=== PATIENT | male | born 1960 | race Caucasian/White ===

== ENCOUNTER → 2018-11-02 | Day surgery (SDC) | payer BC ==
[~2018-11-02] MED LIST: ASPIR 8181 M1 PO; ASPIR 8181 MG PO; AUGMENTIN 875875 MG PO; BACTRIM DS TAB1 EACH PO; ENDOCET 5-3251 EACH PO; HYDROCODONE-AP1 EAC6 PO; IMDUR 30 MG TAB30 M1 PO; KEFLEX500 MG PO; LOPRESSOR25 PO; MUCINEX TA600 MG/TA2 PO; PREDNISONE 5 MG5 M1 PO; PROPAFENONE 15150 MG PO; TRICOR145 MG PO
--- NOTE | ~2018-11-02 | PROC ---
[address] [address] PROCEDURE REPORT Name: YARA PATRICK Room: [facility] M..#: [id number] Admission: 11/02/18 Attend Phys: Desmond Mckeon MD Discharge: Date of : 62 Report #: [id number] THIS REPORT FOR: //name// For GI report, please see the Provation report in Perceptive 7. By: 1447Medical Records Staff [facility] /JOHN
[2018-11-02 10:45] LABS: HEMATOCRIT 42.4 % (42.0-52.0); HEMOGLOBIN 14.9 gm/dL (14.0-18.0); MCH 29.5 pg (26.0-34.0); MCHC 35.1 g/dL (28.0-37.0); MPV 7.1 fl. (7.2-11.1); RBC 5.04 mil/uL (4.50-6.00); RDW-CV 14.1 % (10.5-14.5); WBC 4.2 thou/uL (4.0-11.0)
[2018-11-02 10:52] LABS: CALCIUM 9.3 mg/dL (8.5-10.1); CREATININE 1.1 mg/dL (0.6-1.3)
[2018-11-02 10:56] LABS: ALBUMIN 4.1 g/dL (3.4-5.0); TOTAL BILIRUBIN 0.8 mg/dL (<0.1-1.0); TOTAL PROTEIN 7.5 g/dL (6.4-8.2)
--- NOTE | 2018-11-02 13:25 | EKG ---
[place] [address] ELECTROCARDIOGRAM REPORT Name: YARA PARTICK Room: [facility].#: [id number] Admission: 11/02/18 Attend Phys: Desmond Mckeon MD Discharge: Date of : 62 Report #: [id number] THIS REPORT FOR: //name// [facility] Test Date: 2018-11-02 Test Time: 10:41:02 Pat Name: YARA PATRICK Department: Room: Gender: M Can Line Examiner: NITO : 1960 Requested By: Bhaskar Baltazar Order Number: [id number] Mamadou MD: José Antonio Velasco Measurements Intervals [place] Rate: 62 P: 20 HI: 167 QRS: 23 QRSD: 108 T: 233 QT: 389 QTc: 395 Interpretive Statements Sinus rhythm Abnormal R-wave progression, early transition Nonspecific T abnormalities, diffuse leads Compared to ECG 10/21/2017 08:30:46 T-wave abnormality still present Electronically Signed On 11-02-2018 13:24:53 PROPERTY DEVELOPER by José Antonio Velasco [email or web address] <ELECTRONICALLY SIGNED> By: José Antonio Velasco MD, [facility] 11/02/18 1324 1041 1041 José Antonio Velasco MD, [facility] /EPI
--- NOTE | 2018-11-04 17:09 | PATH ---
[facility] [address] [place] [address] PATHOLOGY RPT PROCEDURE Name: QUINN PATRICK Room: [facility].R.#: [id number] Admission: 11/02/18 Date of : 62 Discharge: Report #: [id number] Path Case #: [id number] [facility] Accession Number: [id number] . 01 Material submitted: . PART A: ASCENDING COLON POLYP PART B: TRANSVERSE COLON POLYP . 01 Clinical history: . Colon cancer screening for high risk patient . 02 Diagnosis: A. Ascending colon polyp: - Hyperplastic polyp. . B. Transverse colon polyp: - Tubular adenoma, negative for high-grade dysplasia. (CHARY:pit 11/04/2018) QTP/11/04/2018 . 02 Electronically signed: . George Draper MD, Pathologist NPI- [id number] . 01 Gross description: . A. Received in formalin labeled "Quinn Patrick, ascending colon polyp," is a single segment of ambrosio soft tissue measuring 0.2 cm in maximum dimension. The specimen is entirely submitted in cassette A1. . B. Received in formalin labeled "Quinn Patrick, transverse colon polyp," is a single segment of ambrosio soft tissue measuring 0.6 cm in maximum dimension. The specimen is entirely submitted in cassette B1. (TSD; 11/02/2018) TOB/TOB . 02 Pathologist provided ICD-10: K63.5, D12.3 . 02 CPT . 222399, 088823 Specimen Comment: A courtesy copy of this report has been sent to Specimen Comment: [phone], . Specimen Comment: Report sent to / DR MULLINS Performed at: [address] [id number] MD Melvin Caputo MD Phone: [phone] Performed at: [address] [address] PATHOLOGY RPT PROCEDURE Name: QUINN PATRICK Room: [facility]#: [id number] Admission: 11/02/18 Date of : 62 Discharge: Report #: [id number] Path Case #: [id number] [address] [id number] MD George Draper MD Phone: [phone]
== END | disposition home or self-care (01) ==
LOC: M.SUR 09:53
PROVIDERS: Student in an Organized Health Care Education/Training Program
DX: Z12.11 Encounter for screening for malignant neoplasm of colon (principal); Z86.010 Personal history of colon polyps; D12.3 Benign neoplasm of transverse colon; K63.5 Polyp of colon; K57.30 Diverticulosis of large intestine without perforation or abscess without bleeding; K64.8 Other hemorrhoids; K21.9 Gastro-esophageal reflux disease without esophagitis; E78.5 Hyperlipidemia, unspecified; I48.0 Paroxysmal atrial fibrillation; G47.33 Obstructive sleep apnea (adult) (pediatric); E66.09 Other obesity due to excess calories; Z80.0 Family history of malignant neoplasm of digestive organs; Z79.899 Other long term (current) drug therapy; Z90.49 Acquired absence of other specified parts of digestive tract; Z79.01 Long term (current) use of anticoagulants; Z80.3 Family history of malignant neoplasm of breast; Z68.43 Body mass index [BMI] 50.0-59.9, adult

== ENCOUNTER 2019-04-26 11:59 | Inpatient (IN) | payer OTHER ==
[~2019-04-26] VITALS: Ht 172.7 cm; Wt 170.1 kg
[2019-04-26 12:06] VITALS: BP 179/107
[2019-04-26] MEDS ORDERED: PROPAFENONE 22225 M1 PO (12:08)
[2019-04-26] MEDS ORDERED: ASPIRIN325 PO (12:08)
[2019-04-26 12:51] LABS: ABSOLUTE EOSINOPHILS 0.1 thou/uL (0.0-0.7); ABSOLUTE LYMPHOCYTES 1.1 thou/uL (0.8-5.3); ABSOLUTE MONOCYTES 1.1 thou/uL (0.0-1.2); ABSOLUTE NEUTROPHILS 8.6 thou/uL (1.6-8.1); BASOPHILS 0.2 %; EOSINOPHILS 0.5 %; HEMATOCRIT 40.2 % (42.0-52.0); HEMOGLOBIN 14.1 gm/dL (14.0-18.0); LYMPHOCYTES 9.8 %; MCV 82.7 fL (80.0-100.0); MONOCYTES 10.2 %; MPV 7.1 fl. (7.2-11.1); NUCLEATED RBCS 0 /100WBC; PLATELET COUNT* 182 thou/uL (150-400); POLYS 79.3 %; RBC 4.86 mil/uL (4.50-6.00); RDW-CV 14.3 % (10.5-14.5); WBC 10.9 thou/uL (4.0-11.0)
[2019-04-26 12:59] LABS: CALCIUM 8.8 mg/dL (8.5-10.1); POTASSIUM 3.5 mmol/L (3.5-5.1)
[2019-04-26 13:04] LABS: ALBUMIN 3.6 g/dL (3.4-5.0); TOTAL BILIRUBIN 1.2 mg/dL (<0.1-1.0); TOTAL PROTEIN 7.3 g/dL (6.4-8.2)
--- NOTE | 2019-04-26 16:45 | NUR ---
PT MOVED TO MORE COMFORTABLE BED TO AWAIT SURGERY.
[2019-04-26 17:07] LABS: PROTIME 10.7 Seconds (9.20-11.50)
[2019-04-26 17:48] VITALS: BP 121/70
[2019-04-26 21:50] VITALS: BP 151/80
--- NOTE | 2019-04-27 00:03 | NUR ---
[id number]: ALERT AND ORIENTED X 4 MALE PATIENT TO ROOM 116 @ 2150 BY BED FROM PACU IN STABLE CONDITION. ABLE TO ROLL INDEPENDENTLY TO SIDE FOR DRESSING CHECK OVER I&D SITE OF ITA-RECTAL ABSCESS. VITAL SIGNS STABLE WITH CONTINUOUS OXIMETRY. PLAN OF CARE REVIEWED. BOX LUNCH AND HS MEDICATIONS PROVIDED. MEDICATED FOR PERINEUM DISCOMFORT. RT SET UP HOME CPAP. CURRENTLY RESTING QUIETLY. CONTINUE TO MONITOR.
[2019-04-27 04:00] VITALS: BP 117/65
--- NOTE | 2019-04-27 05:07 | NUR ---
PATIENT HAS REMAINED ALERT AND ORIENTED X 4 THROUGHOUT THE SHIFT AND RESTING QUIETLY ON HOURLY ROUNDS. TURNED TO SIDE FOR COMFORT. DRESSING TO BOTTOM INTACT. MEDICATED FOR PAIN X 1 TO GOOD EFFECT. HAS HAD REGULAR DIET WITHOUT NAUSEA. VOIDED PER URINAL IN ADEQUATE AMOUNT. NO CHEST PAIN OR SHORTNESS OF BREATH. ROOM AIR OVERNIGHT WITH HOME CPAP ON AND CONTINUOUS OXIMETRY. VITAL SIGNS STABLE. CONTINUE TO MONITOR.
[2019-04-27 05:16] LABS: CALCIUM 8.8 mg/dL (8.5-10.1); CREATININE 1.1 mg/dL (0.6-1.3); MAGNESIUM 2.1 mg/dL (1.8-2.4); PHOSPHORUS* 1.8 mg/dL (2.5-4.9); POTASSIUM 4.2 mmol/L (3.5-5.1)
[2019-04-27 05:29] LABS: HEMATOCRIT 38.5 % (42.0-52.0); HEMOGLOBIN 13.4 gm/dL (14.0-18.0); MCH 29.1 pg (26.0-34.0); MCHC 34.8 g/dL (28.0-37.0); MCV 83.5 fL (80.0-100.0); MPV 7.8 fl. (7.2-11.1); RBC 4.61 mil/uL (4.50-6.00); RDW-CV 13.8 % (10.5-14.5); WBC 10.8 thou/uL (4.0-11.0)
[2019-04-27 07:35] VITALS: BP 96/55
[2019-04-27 09:10] VITALS: BP 96/55
[2019-04-27 11:30] VITALS: BP 119/78
--- NOTE | 2019-04-27 15:59 | NUR ---
HARMONICA MAKER SPOKE TO THE PATIENT TO DISCUSS HIS HOME SITUATION, DISCHARGE PLANNING, AND TO INFORM OF THE ROLE OF CM. PATIENT ALERT, ORIENTED, AND INDEPENDENT WITH ADL'S. PATIENT ACTIVE, AND WORKS. PATIENT RESIDES AT HOME ALONE, BUT INFORMS THAT HIS SON IS ABLE TO ASSIST HIM AT D/C IF NEEDED. PATIENT USES A CPAP AT HOME, AND BROUGHT IT WITH HIM TO THE HOSPITAL TO USE. PATIENT HAS NO HX OF HH OR SNF, AND PLANS TO RETURN HOME AT D/C. CM WILL REMAIN AVAILABLE TO ASSIST AND FOLLOW NEEDED.
[2019-04-27 16:01] VITALS: BP 111/56
--- NOTE | 2019-04-27 17:25 | NUR ---
PT REMAINED ALERT AND ORIENTED. PT DENIES ANY PAIN AT THIS TIME. FALL RISK PRECAUTIONS IN PLACE. HOURLY ROUNDING COMPLETED. WILL CONTINUE TO MONITOR.
[2019-04-27 21:15] VITALS: BP 142/95
--- NOTE | 2019-04-28 04:52 | NUR ---
PATIENT HAS REMAINED ALERT AND ORIENTED X 4 THROUGHOUT THE SHIFT AND RESTING QUIETLY ON HOURLY ROUNDS AFTER HS. UP IN ROOM DURING THE EVENING. PUT ON SHORTS AND SAT IN CHAIR FOR A BIT. BED LINENS CHANGED. ITA-RECTAL DRESSING CLEAN AND DRY. VITAL SIGNS STABLE. ANTIBIOTICS PROVIDED PER ORDER. CONTINUE TO MONITOR.
[2019-04-28 07:45] VITALS: BP 145/80
[2019-04-28 11:02] VITALS: BP 96/55
[2019-04-28 13:36] VITALS: BP 96/55
--- NOTE | 2019-04-28 15:41 | NUR ---
Nutrition: pt with class III morbid obesity. Unavailable at visit. Intake 100%. Albumin WNL. Meds reviewed. Low nutrition risk.
--- NOTE | 2019-04-28 15:54 | NUR ---
AUTO REPAIR SHOP MANAGER SPOKE TO THE PATIENT TO DISCUSS DISCHARGE PLANNING AND HH. PATIENT IN AGREEMENT WITH PLAN AND ACCEPTS [facility] FOR HH. D/C CHECK INSPECTOR ASSISTED THE PATIENT IN COMPLETING CHOICE OF VENDOR FORM AND PLACED COPY ON CHART. D/C CHECK INSPECTOR SPOKE TO [facility] TO INFORM OF REFERRAL. D/C CHECK INSPECTOR INFORMED BY RN IN-CHARGE OF PATIENT THAT SX WILL SEE PATIENT TODAY TO DETERMINE IF THE PATIENT IS READY TO D/C WITH PLAN TO TRANSITION PATIENT TO ORAL ABT'S. CM WILL REMAIN AVIALABLE TO ASSIST AND FOLLOW NEEDED. [facility] PHONE: [phone] FAX:[phone]
[2019-04-28 16:39] VITALS: BP 96/55
[2019-04-28] MEDS ORDERED: NORCO 7.5-3251 EACH PO (16:49)
[2019-04-28] MEDS ORDERED: FLAGYL500 M1 PO (16:49)
[2019-04-28] MEDS ORDERED: AUGMENTIN 875-1 EACH PO (16:50)
[2019-04-28 16:51] VITALS: BP 96/55
[2019-04-28 17:08] VITALS: BP 96/55
--- NOTE | 2019-04-28 17:45 | NUR ---
PT GIVEN DISCHARGE INFORMATION, CARE NOTES, AND PRESCRIPTIONS. IV REMOVED. HOME HEALTH SET UP. FALL RISK PRECAUTIONS IN PLACE. HOURLY ROUNDING COMPLETED. PT LEFT AMBULATORY TO HOME.
--- NOTE | 2019-05-01 13:09 | OP ---
[address] [address] OPERATIVE REPORT Name: CELINAYARA MONTANO Room: [address] M.R.#: [id number] Admission: 04/26/19 Attend Phys: Joseph Talbot DO Discharge: 04/28/19 Date of : 62 Report #: [id number] THIS REPORT FOR: //name// CC: Joseph Talbot DO Timaalem Benedict Timaalem Benedict MD DICTATED BY: Laly Barber DO DATE OF SERVICE: 04/26/2019 PREOPERATIVE DIAGNOSIS: Perirectal abscess. POSTOPERATIVE DIAGNOSES: Perirectal abscess. PROCEDURE PERFORMED: Incision and drainage of perirectal abscess. PRIMARY SURGEON: Joseph Talbot DO. HYDROELECTRIC POWERPLANT SUPERVISOR: Laly Barber DO, PGY1. ANESTHESIA: General endotracheal. ESTIMATED BLOOD LOSS: 50 mL. FINDINGS: Large abscess cavity approximately 8 x 5 cm. COMPLICATIONS: None. INDICATIONS: The patient is a pleasant 58-year-old gentleman that presented to the Emergency Department with perirectal pain that began on 04/23/2019. He had subjective fever and chills at home. No drainage from the area. No nausea, vomiting, or change in bowel habits. In the Emergency Department, he underwent a CT of the abdomen and pelvis, which demonstrated an 8 x 4 cm fluid collection of the perirectal region. He does have a history of atrial fibrillation and takes 325 mg of aspirin daily. It was recommended that he undergo incision and drainage of this abscess in the operating room. DESCRIPTION OF PROCEDURE: The benefits, risks and possible complications were all discussed with the patient in detail and he wished to proceed with surgery. Informed consent was obtained. The patient was taken to the operating room and placed supine on the operating room table. General endotracheal anesthesia was induced without difficulty. The patient was then placed in the lithotomy position. He was then prepped and draped in the standard sterile fashion. A timeout was performed to ensure correct patient [place] [address] OPERATIVE REPORT Name: YARA PATRICK Room: [address] M.R.#: [id number] Admission: 04/26/19 Attend Phys: Joseph Talbot, Discharge: 04/28/19 Date of : 62 Report #: [id number] antibiotics were given. SCDs were placed on bilateral lower extremities, a 4 cm vertical incision was made overlying the area of fluctuant using a 15 blade scalpel, incision was carried down through the subcutaneous tissue. Blunt dissection was used to enter the abscess cavity. We then had immediate return of copious amounts of foul smelling purulent fluid. Culture swabs were obtained. A finger was used to bluntly dissect within the abscess cavity and break up any existing loculations. Purulent fluid continued to drain from the wound, abscess cavity measured approximately 8 x 5 cm. The vertical incision was extended anteriorly approximately for a total length of the incision of 6 cm abscess. Cavity was copiously irrigated with hydrogen peroxide and then sterile saline. The cavity was then packed with a 2-inch iodoform packing. Pressure was held for several minutes to ensure hemostasis. The patient was then cleansed and dried. ABD pads were placed over the surgical site. The patient tolerated the procedure well. He was allowed to awaken in the operating room and then transferred to the PACU in stable condition with plans to admit to the floor for further care and IV antibiotics. <ELECTRONICALLY SIGNED> By: Joseph Talbot DO 05/01/19 1309 2113 2210Adaroosevelt Talbot DO /nt
== END 2019-04-28 17:46 | disposition home health service (06) | DRG 346 ==
LOC: M.ERS 11:59 → M.ORTHSURG 16:12 → M.TBA-ER 16:12 → M.ORTHSURG 21:50
PROVIDERS: Nurse Practitioner Family; ADMIT Surgery
PROC: 0D9P0ZZ Drainage of Rectum, Open Approach (ICD-10-PCS; principal; 2019-04-26)
DX: K61.0 Anal abscess (principal); I48.91 Unspecified atrial fibrillation; Z82.49 Family history of ischemic heart disease and other diseases of the circulatory system; Z79.899 Other long term (current) drug therapy

== ENCOUNTER → 2019-12-10 | Outpatient (CLI) | payer OTHER ==
[~2019-12-10] MED LIST changes: +ASPIRIN325 PO; +AUGMENTIN 875-1 EACH PO; +FLAGYL500 M1 PO; +NORCO 7.5-3251 EACH PO; +PROPAFENONE 22225 M1 PO
== END ==
LOC: M.ULTRA 07:51
DX: K80.20 Calculus of gallbladder without cholecystitis without obstruction (principal); R16.0 Hepatomegaly, not elsewhere classified; K76.0 Fatty (change of) liver, not elsewhere classified

== ENCOUNTER → 2020-01-21 | Day surgery (SDC) | payer OTHER ==
[~2020-01-21] MED LIST changes: +LIPITOR 20 MG T20 M1 PO; +NEURONTIN100 MG PO; +OXYCODONE HCL 55 MG PO
--- NOTE | ~2020-01-21 | OP ---
[address] [address] OPERATIVE REPORT Name: YARA PATRICK Room: [facility]..#: [id number] Admission: 01/21/20 Attend Phys: Joseph Talbot DO Discharge: Date of : 62 Report #: [id number] THIS REPORT FOR: //name// cc: Tima Benedict MD, Dean L. MD ~ THIS REPORT FOR: //name// CC: Joseph Benedict MD DICTATED BY: Marcos Talley DO DATE OF SERVICE: 01/21/2020 PREOPERATIVE DIAGNOSES: Morbid obesity, BMI 60; symptomatic cholelithiasis. POSTOPERATIVE DIAGNOSES: Morbid obesity, BMI 60; symptomatic cholelithiasis. PROCEDURE PERFORMED: Laparoscopic cholecystectomy with fluorescent imaging. SURGEON: Joseph Talbot DO CNA: Marcos Talley DO, PGY4 ANESTHESIA: General and local. ESTIMATED BLOOD LOSS: 20 mL. SPECIMEN: Gallbladder. COMPLICATIONS: None. INDICATIONS: The patient is a 59-year-old male who presented to our clinic with complaints of postprandial right upper quadrant pain. He was found on ultrasound to have gallstones. He was informed of the risks and benefits of laparoscopic cholecystectomy with risks including, but not limited to bleeding, infection, damage to liver, common bile duct injury, bowel, need for reoperation, hernia formation, chronic pain, chronic diarrhea. He understood these risks. He decides to proceed with surgery. TECHNIQUE: After informed consent was obtained, the patient was brought to the operating room and placed in the supine position. SCDs were on and running. Preoperative antibiotics were delivered. General anesthesia was administered with an ET tube. The patient was prepped and draped in the usual sterile fashion. Surgical pause was held to confirm proper [place] [address] OPERATIVE REPORT Name: YARA PATRICK Room: [facility]#: [id number] Admission: 01/21/20 Attend Phys: Joseph Talbot DO Discharge: Date of : 62 Report #: [id number] 11 blade was used to make a vertical supraumbilical incision, 3 cm in length. Dissection was carried down to the fascia using cautery. Fascia was incised using cautery and elevated with 2 Dimitrios clamps. Peritoneum was bluntly entered using a Preeti. 0 Vicryl stay sutures were placed at the superior and inferior aspects of the fascial incision. The Marianne trocar was introduced 5 mm into the abdomen. The syringe was insufflated. The camera was introduced. Intraperitoneal location was confirmed. The abdomen was insufflated. The patient was positioned head up. A 5 mm port was placed in the epigastrium under direct visualization. A blunt grasper was used to sweep a large amount of omental fat off of the liver, revealing the gallbladder. The patient was positioned right side up. Two additional 5 mm ports in the right upper quadrant were placed under direct visualization. The gallbladder was grasped with a Wavy grasper and elevated cephalad. There was a large amount of fat within the cystic triangle with care to stay high on the gallbladder. The peritoneum overlying this fat was incised using cautery and this plane was developed laterally and then medially. The cystic duct was isolated with combination of cautery and blunt dissection. Suction dispensary attendant was used for significant amount of the dissection. Fluorescence imaging with ICG green was used to confirm structures, the gallbladder david as well as Christel's pouch in the cystic duct. The cystic duct was completely isolated circumferentially using Maryland dissector. The cystic artery was also isolated using [place] dissection once a critical view of safety with only two and two structures entering the gallbladder. The cystic artery was clipped, 1 single clip proximal and distal. The cystic duct was then clipped, 2 proximal and 1 distal. Laparoscopic scissors were used to cut the cystic artery and cystic duct. The gallbladder was then elevated and carefully dissected free from the liver bed. There was a larger vein within the fat that was isolated and clipped as well. This was transected using cautery. The gallbladder was then carefully dissected free from the liver bed using cautery. Once it was completely freed, it was placed within an EndoCatch bag and placed aside. The liver bed was inspected. Cautery was used for hemostasis. Inspection of the clips was held, these were viewed with normal light and fluorescence imaging. There was no sign of leak or bleeding. The ports were then removed under direct visualization as the abdomen was desufflated. Previous stay sutures were elevated. The gallbladder was removed through the umbilical incision. 0 Vic[address] was used to place two additional apovem-rd-ciady to close the fascia at the umbilical incision. This wound was closed in layered fashion using 3-0 Vicryl, 4-0 Monocryl. Remainder of skin was closed using 4-0 Monocryl. Wounds were cleansed and dressed with Mastisol, Steri-Strips, Tegaderms. There were no complications. All counts were correct at the close of the case. The patient tolerated the procedure well and was emerged from anesthesia and transferred to the PACU in stable condition. By: 1236 1333Asreekanth Talbot DO /alfredo
[2020-01-21 10:04] LABS: HEMATOCRIT 41.6 % (42.0-52.0); HEMOGLOBIN 14.8 gm/dL (14.0-18.0); MCH 29.5 pg (26.0-34.0); MCHC 35.5 g/dL (28.0-37.0); MCV 83.1 fL (80.0-100.0); MPV 7.3 fl. (7.2-11.1); RBC 5.01 mil/uL (4.50-6.00); RDW-CV 15.2 % (10.5-14.5); WBC 5.5 thou/uL (4.0-11.0)
[2020-01-21 10:15] LABS: CALCIUM 8.8 mg/dL (8.5-10.1); POTASSIUM 4.1 mmol/L (3.5-5.1)
--- NOTE | 2020-01-25 15:08 | PATH ---
[facility] [address] [place] [address] PATHOLOGY RPT PROCEDURE Name: QUINN PATRICK Room: [facility]..#: [id number] Admission: 01/21/20 Date of : 62 Discharge: Report #: [id number] Path Case #: [id number] [facility] Accession Number: [id number] . 01 Material submitted: . gallbladder - GALLBLADDER . 01 Clinical history: . Calculus of gallbladder without cholecystitis without obstruction . 02 Diagnosis: Gallbladder: - Chronic cholecystitis and cholelithiasis. . (CHARY:aurelio; 01/25/2020) [facility] 01/25/2020 1320 Local . 02 Electronically signed: . George Draper MD, Pathologist NPI- [id number] . 01 Gross description: . The specimen is received in formalin labeled "Colin, Quinn, gallbladder" and consists of an intact green mullins smooth shiny gallbladder measuring 9.4 x 3.4 x 2.0 cm. The margin is inked black. Opening reveals a lumen filled with tenacious green bile and 2 spiculated black calculi measuring 0.6 cm and 1.5 cm. The mucosa is green and velvety with scattered yellow specks and an average wall thickness of 0.1 cm. No masses are identified. Gas Welding Machine Operator sections are submitted in A1. (SDY; 01/24/2020) SYU/SYU 01/25/2020 1318 Local . 02 Pathologist provided ICD-10: K80.10 . 02 CPT . 031774 Specimen Comment: A courtesy copy of this report has been sent to [phone], [phone] Specimen Comment: [phone] Specimen Comment: Report sent to / DR MATTSON Performed at: [address] [id number] MD Melvin Caputo MD Phone: [phone] Performed at: [address] [id number] [place] [address] PATHOLOGY RPT PROCEDURE Name: QUINN PATRICK Room: [facility]..#: [id number] Admission: 01/21/20 Date of : 62 Discharge: Report #: [id number] Path Case #: [id number] MD George Draper MD Phone: [phone]
--- NOTE | 2020-01-28 14:58 | EKG ---
[place] [address] ELECTROCARDIOGRAM REPORT Name: YARA PATRICK Room: [facility]#: [id number] Admission: 01/21/20 Attend Phys: Joseph Talbot DO Discharge: Date of : 62 Date of Service: 01/21/20 1015 Report #: [id number] THIS REPORT FOR: //name// [facility] Test Date: 2020-01-21 Test Time: 10:15:41 Pat Name: YARA PATRICK Department: Room: Gender: Research Associate Molecular Biology: : 1960 Requested By: Joseph Talbot Order Number: [id number] Reading MD: José Antonio Velasco Measurements Intervals [place] Rate: 60 P: 33 DE: 175 QRS: 43 QRSD: 109 T: 264 QT: 413 QTc: 413 Interpretive Statements Sinus rhythm Abnormal R-wave progression, early transition Nonspecific T abnormalities, diffuse leads Compared to ECG 11/02/2018 10:41:02 No significant changes Electronically Signed On 01-21-2020 12:09:35 MANAGER APPLIED by José Antonio Velasco [email or web address] <ELECTRONICALLY SIGNED> By: José Antonio Velasco MD, [facility] 01/21/20 1209 1015 1015 José Antonio Velasco MD, [facility] /EPI
== END | disposition home or self-care (01) ==
LOC: M.SUR 08:33
PROVIDERS: Surgery
DX: K80.10 Calculus of gallbladder with chronic cholecystitis without obstruction (principal); I48.91 Unspecified atrial fibrillation; E66.01 Morbid (severe) obesity due to excess calories; Z98.890 Other specified postprocedural states; Z79.899 Other long term (current) drug therapy; Z68.44 Body mass index [BMI] 60.0-69.9, adult; Z79.82 Long term (current) use of aspirin; Z79.01 Long term (current) use of anticoagulants

== ENCOUNTER 2020-07-22 10:20 | Inpatient (IN) | payer OTHER ==
[~2020-07-22] VITALS: Ht 172.7 cm; Wt 174.2 kg
[2020-07-22 10:25] VITALS: BP 135/90
[2020-07-22 11:24] LABS: ABSOLUTE EOSINOPHILS 0.1 thou/uL (0.0-0.7); ABSOLUTE MONOCYTES 1.1 thou/uL (0.0-1.2); ABSOLUTE NEUTROPHILS 7.6 thou/uL (1.6-8.1); BASOPHILS 0.2 %; HEMATOCRIT 38.8 % (42.0-52.0); HEMOGLOBIN 13.7 gm/dL (14.0-18.0); LYMPHOCYTES 10.6 %; MCH 29.3 pg (26.0-34.0); MCHC 35.2 g/dL (28.0-37.0); MCV 83.4 fL (80.0-100.0); MONOCYTES 11.3 %; MPV 6.9 fl. (7.2-11.1); NUCLEATED RBCS 0 /100WBC; PLATELET COUNT* 223 thou/uL (150-400); POLYS 76.9 %; RBC 4.66 mil/uL (4.50-6.00); WBC 9.9 thou/uL (4.0-11.0)
[2020-07-22 11:40] LABS: CALCIUM 8.6 mg/dL (8.5-10.1); POTASSIUM 3.7 mmol/L (3.5-5.1)
[2020-07-22 11:44] LABS: ALBUMIN 3.3 g/dL (3.4-5.0); TOTAL BILIRUBIN 0.9 mg/dL (<0.1-1.0); TOTAL PROTEIN 7.2 g/dL (6.4-8.2)
[2020-07-22 14:27] VITALS: BP 117/69
[2020-07-22 14:54] VITALS: BP 122/77
[2020-07-22 15:33] LABS: URINE BILIRUBIN NEGATIVE (Negative); URINE BLOOD NEGATIVE (Negative); URINE CLARITY CLEAR; URINE COLOR YELLOW; URINE GLUCOSE-RANDOM TRACE (Negative); URINE KETONES NEGATIVE (Negative); URINE LEUKOCYTES-REFLEX NEGATIVE (Negative); URINE NITRITE-REFLEX NEGATIVE (Negative); URINE PROTEIN NEGATIVE (Negative); URINE SPECIFIC GRAVITY 1.015 (1.005-1.030); URINE UROBILINOGEN 0.2 E.U./dl (0.2-1.0)
--- NOTE | 2020-07-22 18:04 | NUR ---
PATIENT ADMITTED TO ROOM 315 FROM ER THIS AFTERNOON. ALERT AND ORIENTED X 4. UP AD SERGO. LEFT BUTTOCK ABCESS NOT VISIBLE FOR WOUND PHOTO. DR. ENRIQUEZ HERE THIS EVEVNING AND I&D OF LEFT BUTTOCK PERFORMED. PACKING IN PLACE AND GAUZE BETWEEN BUTTOCKS. PRN FENTANYL GIVEN X 1 FOR PAIN. SCHED IV ABX INFUSING ORDERED. CALL LIGHT WITHIN REACH, WILL CONTINUE TO MONITOR.
[2020-07-22 19:30] VITALS: BP 126/70
[2020-07-23 04:04] LABS: ABSOLUTE EOSINOPHILS 0.1 thou/uL (0.0-0.7); ABSOLUTE LYMPHOCYTES 1.4 thou/uL (0.8-5.3); ABSOLUTE MONOCYTES 1.2 thou/uL (0.0-1.2); ABSOLUTE NEUTROPHILS 8.2 thou/uL (1.6-8.1); BASOPHILS 0.1 %; EOSINOPHILS 0.9 %; HEMATOCRIT 36.6 % (42.0-52.0); HEMOGLOBIN 12.9 gm/dL (14.0-18.0); LYMPHOCYTES 12.7 %; MCH 29.3 pg (26.0-34.0); MCHC 35.1 g/dL (28.0-37.0); MCV 83.5 fL (80.0-100.0); MONOCYTES 10.7 %; MPV 6.6 fl. (7.2-11.1); NUCLEATED RBCS 0 /100WBC; PLATELET COUNT* 225 thou/uL (150-400); POLYS 75.6 %; RBC 4.39 mil/uL (4.50-6.00); RDW-CV 13.8 % (10.5-14.5); WBC 10.9 thou/uL (4.0-11.0)
[2020-07-23 04:10] LABS: CALCIUM 8.3 mg/dL (8.5-10.1); POTASSIUM 3.8 mmol/L (3.5-5.1)
--- NOTE | 2020-07-23 05:12 | NUR ---
Pt alert and oriented. VSS on RA. Meds given as ordered. PRN fentanyl given several times this shift. Pt voiced that fentanyl was not lasting for him. Coalgate ordered per Dr Hunter. Pt stood up to go the bathroom. Nursing noticed pt had blodo on his gown. Pad on the bed also had decent amount of blood on it. Nursing assessed wound abcess on pt's left buttock and saw that it was bleeding. First attempt to clean out wound abcess, , wound was draining out decent amount amount of pus and blood. Abcess put out decent amount of pus. Coalgate 2 tabs given for pain. pt reported feeling better after that drainage. Abcess packed with packing strip. Incision packing still intact. Will continue to monitor.
[2020-07-23 07:50] VITALS: BP 131/53
--- NOTE | 2020-07-23 16:09 | NUR ---
NO COMPLAINTS OF PAIN THIS SHIFT. PACKING REMAINS TO LEFT BUTTOCK. PATIENT ENCOURAGED TO TAKE A SHOWER THIS SHIFT. IV SL, SCHED ABX INFUSED ORDERED.
[2020-07-23 16:20] VITALS: BP 110/57
[2020-07-23 19:50] VITALS: BP 153/70
[2020-07-24 03:24] LABS: ABSOLUTE EOSINOPHILS 0.3 thou/uL (0.0-0.7); ABSOLUTE LYMPHOCYTES 1.2 thou/uL (0.8-5.3); ABSOLUTE MONOCYTES 0.8 thou/uL (0.0-1.2); ABSOLUTE NEUTROPHILS 4.8 thou/uL (1.6-8.1); BASOPHILS 0.4 %; EOSINOPHILS 3.6 %; HEMATOCRIT 34.1 % (42.0-52.0); HEMOGLOBIN 12.3 gm/dL (14.0-18.0); LYMPHOCYTES 17.6 %; MCH 29.8 pg (26.0-34.0); MCHC 36.2 g/dL (28.0-37.0); MCV 82.3 fL (80.0-100.0); MONOCYTES 10.9 %; NUCLEATED RBCS 0 /100WBC; PLATELET COUNT* 219 thou/uL (150-400); POLYS 67.5 %; RBC 4.14 mil/uL (4.50-6.00); RDW-CV 13.9 % (10.5-14.5); WBC 7.1 thou/uL (4.0-11.0)
[2020-07-24 03:53] LABS: CALCIUM 8.2 mg/dL (8.5-10.1); CREATININE 1.1 mg/dL (0.6-1.3); MAGNESIUM 1.9 mg/dL (1.8-2.4); PHOSPHORUS* 3.1 mg/dL (2.5-4.9); POTASSIUM 3.6 mmol/L (3.5-5.1)
--- NOTE | 2020-07-24 07:06 | NUR ---
Pt alert and oriented. VSS on RA. Meds given as ordered. Pt declined pain med this shift. Incision packing intact, abcess opening does not have packing. Pt declined packing at this time. Want it done later in the morning. Call light within reach. Will continue to monitor.
[2020-07-24 08:00] VITALS: BP 140/70
--- NOTE | 2020-07-24 09:58 | NUR ---
PT.RESTING IN BED. SAID HE FEELS BETTER TODAY. LIVES ALONE. 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 SONS ARE SUPPORTIVE. DISCUSSED HOME HEALTH WITH HIM. HE DOES NOT FEEL EITHER SON COULD PACK HIS WOUND FOR HIM. HE SAID HE USED [facility] IN THE PAST AND THEY DID COME DAILY FOR PACKING CHANGES. CM WILL SET UP HH AND MAKE SURE THEY CAN COME DAILY FOR DRESSING CHANGES. POSSIBLE DISCHARGE TOMORROW.
[2020-07-24 10:10] VITALS: BP 140/70
[2020-07-24] MEDS ORDERED: BACTRIM DS TAB1 EACH PO (11:18)
[2020-07-24] MEDS ORDERED: OXYCODONE HCL 55 MG PO (11:18)
--- NOTE | 2020-07-24 16:35 | NUR ---
PT A&OX4 VSS. PT UP AD SERGO, GAIT STEADY. PT REMAINS CONTINENT OF B/B. PT REPORTS BM THIS SHIFT. IV TO [facility] DC'D PRIOR TO PT SHOWERING THIS AFTERNOON. PT DECLINED NARCOTIC PAIN MEDS D/T DRIVING SELF HOME AT DC. SCHEDULED TYLENOL ADMINMISTERED ORDERED. IV ABX CONTINUED R/T ABSCESS. WOUND PACKED WITH 1/4 INCH PLAIN PACKING AND COVERED WITH ABD. PT PROVIDED SUPPLIES FOR WOUND CARE REQUESTED BY CM. HH ARRANGEMENTS MADE WITH VIDAL MARCELO FOR DAILY WOUND CARE AT HOME. PT STATES UNDERSTANDING OF DC INSTRUCTIONS AND PT STATES HE HAS ALREADY BEEN CONTACTED BY HIS PHARMACY REGARDING HIS RX. PT LEFT UNIT WITH ALL PERSONAL BELONGINGS, ESCORTED BY NURSING STAFF.
== END 2020-07-24 16:40 | disposition home health service (06) | DRG 394 ==
LOC: M.ERS 10:20 → M.TBA-ER 13:42 → M.3W 13:42
PROVIDERS: Family Medicine; ADMIT Internal Medicine; ATTEND Internal Medicine
PROC: 0W9M0ZZ Drainage of Male Perineum, Open Approach (ICD-10-PCS; principal; 2020-07-22)
DX: K61.0 Anal abscess (principal); Z68.43 Body mass index [BMI] 50.0-59.9, adult; E66.01 Morbid (severe) obesity due to excess calories; G47.33 Obstructive sleep apnea (adult) (pediatric); I48.91 Unspecified atrial fibrillation; Z20.828 Contact with and (suspected) exposure to other viral communicable diseases; Z90.49 Acquired absence of other specified parts of digestive tract; Z79.82 Long term (current) use of aspirin; Z79.899 Other long term (current) drug therapy; Z87.891 Personal history of nicotine dependence; Z99.81 Dependence on supplemental oxygen